=== PATIENT | male | born 1975 | race Caucasian/White ===

== ENCOUNTER → 2020-01-22 15:01 | Outpatient (BNVA) | payer MEDICAID, SELFPAY | PROVIDERS: Family Provider Registered Nurse; PCP Registered Nurse; Visit Provider Registered Nurse | DX: N52.9 Male erectile dysfunction, unspecified (principal); Z91.09 Other allergy status, other than to drugs and biological substances | CPT/HCPCS: 80053; 85025 ==

== ENCOUNTER 2020-02-12 06:42 | Outpatient (CLI) | payer MEDICAID, SELFPAY ==
--- NOTE | 2020-02-12 07:15 | US_ITS ---
WS: [id number] ULTRASOUND ABDOMEN LIMITED CLINICAL INFORMATION: Inguinal hernia COMPARISON: None. FINDINGS: Ultrasound of the inguinal canals. Large fat-containing right inguinal hernia. This enlarge s with Valsalva. No herniated bowel. Left inguinal canal appears normal US/US abdomen limited [id number] IMPRESSION: Large fat-containing right inguinal hernia. No herniated bowel. Left inguinal c anal is normal.
== END 2020-02-12 06:43 | disposition home or self-care (01) ==
LOC: US 06:43
PROVIDERS: PCP Registered Nurse; Visit Provider Registered Nurse
DX: K40.90 Unilateral inguinal hernia, without obstruction or gangrene, not specified as recurrent (principal)
CPT/HCPCS: 76705

== ENCOUNTER → 2020-02-26 15:35 | Outpatient (BNVA) | payer MEDICAID, SELFPAY | PROVIDERS: PCP Registered Nurse; Visit Provider Surgery | DX: Z20.828 Contact with and (suspected) exposure to other viral communicable diseases (principal); K40.30 Unilateral inguinal hernia, with obstruction, without gangrene, not specified as recurrent | CPT/HCPCS: 87635 ==

== ENCOUNTER 2020-03-03 10:45 | Day surgery (SDC) | payer MEDICAID, SELFPAY ==
[2020-02-29 12:21] VITALS: BMI 22.4
[2020-03-03] VITALS (9 sets, daily range): BP systolic 146–171; BP diastolic 80–109; PULSE 62–83; RESP 16–20; TEMP 35.9–36.7; O2SAT 93–97
[2020-03-03] MEDS: sodium chloride 0.9% 1,000 ML 30 ML IV (11:18)
--- NOTE | 2020-03-03 11:25 | ANES.PREANE2 ---
Pre-Anesthetic Assessment Pre-Anesthetic Assessment: Height/Weight: Height 1.88 m Weight 79.379 kg Temp Pulse Resp BP Pulse Ox 98.1 F 72 18 160/109 97 03/03/20 11:06 03/03/20 11:06 03/03/20 11:06 03/03/20 11:06 03/03/20 11:06 Preop Diagnosis: right inguinal hernia Proposed Procedure: Operation Date: 03/03/20 13:45 Proposed Procedures p Laparoscopic possible open right Inguinal Hernia Repair w/Mesh [id number] k40.30(Right) - Rashad Ospina MD Familial anesthetic complications: none Was Beta Deidre taken within 24 hours: N/A Last intake: Intake Last Liquid Date 03/02/20 Last Liquid Time 22:00 Last Solid Date 03/02/20 Last Solid Time 19:30 Social: Social History: Tobacco and No alcohol Exam: Pre-Anes Outpt Exam: alert, oriented x 3, clear to auscultation bilaterally and regular rate & rhythm Airway: Cervical ROM: WNL MP: 2 Dentition: Other (plates) Pulmonary: Pulmonary: COPD CV/HEM: CV/HEM: HTN Anesthetic Plan: ASA status: 2 Anesthesia: General Risk of > 500 ml blood loss (7ml/kg in children): No Meds/Allergies Current Medications: Current Medications Generic Name Dose Route Start Last Admin Trade Name Freq PRN Reason Stop Dose Admin Sodium Chloride 1,000 mls @ 30 ml s/hr 03/03/20 11:00 03/03/20 11:18 Sodium Chloride 0.9% IV 03/04/20 10:59 30 mls/hr .Q24H BERTIN Administration PFSH Anesthesia PFSH: Medical History Environmental allergies Hearing loss Family History Mother Diabetes Father Diabetes Cancer Social History Smoking and tobacco status: current some day smoker Alcohol intake: never Marital status: Current gender identity: Male Data Anesthesia Cardiac Studies: No Data to Display
--- NOTE | 2020-03-03 11:38 | W.PM.OPSUD ---
Surgery/Procedure H&P Update DATE OF PROCEDURE: March 03, 2020 DATE H&P PERFORMED: 02/22/20 H&P UPDATE INFORMATION: I have reviewed H&P completed within last 30 days, I have examined patient prior to procedure and No changes to prior documentation PREOP DIAGNOSIS: right inguinal hernia PLANNED PROCEDURE: Operation Date: 03/03/20 13:45 Proposed Procedures p Laparoscopic possible open right Inguinal Hernia Repair w/Mesh [id number] k40.30(Right) - Rashad Ospina MD
[2020-03-03] MEDS: midazolam 1 mg/mL INJ 2 mL 2 MG IVP (11:50)
--- NOTE | 2020-03-03 14:26 | PM.OP ---
Operative Report Date of procedure: March 03, 2020 Pre-op Diagnosis: right inguinal hernia Post-op Findings: Incarcerated indirect inguinal hernia containing omentum Procedure Done: Laparoscopic total extraperitoneal repair of incarcerated indirect right inguinal hernia with Surgimax 3D mid 16 x 11 cm mesh Specimens removed/disposition: None Surgeon: Rashad Ospina Anesthesia: General Condition: stable Disposition: PACU Procedure: The patient was taken to the operating room. After IV antibiotic was administered, the abdomen was prepped and draped in a sterile manner. Using a 15 blade, a 1.0 cm transverse incision was made infraumbilically on the () side. Subcutaneous tissue was divided using electrocautery and the anterior rectus sheath divided using an 11 blade. The rectus muscle was retracted laterally and the extraperitoneal space identified. A 11 mm port was placed and 12 mm of pneumoperitoneum was created. A 10 mm 30? scope was introduced and the retrorectus space was opened using the camera up to the pubic symphysis and 5 mm ports were placed in the midline, one 2-fingerbreadths above the pubic symphysis and the other midway between these two ports under direct visualization. Blunt dissection was carried out to open up the tissue in the midline and to the pubic symphysis, which was identified. The dissection was then carried laterally where the iliopubic tract was identified. There was no femoral, obturator or direct hernia noted. The inferior epigastric artery was identified and dissection was carried posterior to it and laterally, the space was opened up to the level of the umbilicus superior to the anterior superior iliac spine. I then proceeded to dissect out the spermatic cord and the indirect incarcerated hernial sac was reduced. The indirect hernia was large and there was an opening in the peritoneum resulting in pneumoperitoneum which was decompressed using a varies needle placed in the right upper quadrant. 16 x 11cm Surgimax 3D Mid mesh was rolled and introduced through the 10 mm port and then rolled laterally and apposed well against the abdominal wall to cover the myopectineal orifice completely. 10 Cc of 0.5% Marcaine was infiltrated into the preperitoneal space. The extraperitoneal space was desufflated under direct visualization to ensure no slippage of hernial sac under the mesh. All ports were removed, the anterior rectus fascia at the infraumbilical port closed using figure of eight 0 Vicryl sutures, subcutaneous tissue approximated using 2-0 Vicryl sutures and skin at all three port sites were closed using running subcuticular 4-0 Monocryl sutures and Dermabond. 10 mL of 0.5% Marcaine was infiltrated at the port sites. The patient was stable throughout the procedure.
--- NOTE | 2020-03-03 15:10 | ANE.PACU2 ---
Inpatient post-anesthesia follow up: Airway intact: Yes Vital signs: Temperature 97.6 F Pulse Rate 69 Respiratory Rate 18 Blood Pressure 159/86 Pulse Oximetry 96 Oxygen Delivery Me thod Room Air Oxygen Flow Rate 8 Fraction of Inspir ed Oxygen Hydration adequate: Yes Nausea and vomiting: No Pain level: 2 Mental status: Baseline
[2020-03-03] MEDS: HYDROcodone-acetaminophen 5-325 mg Tablet 1 TAB PO (15:30)
== END 2020-03-03 15:47 | disposition home or self-care (01) ==
PROVIDERS: PCP Registered Nurse; Visit Provider Surgery
PROC: (CPT 49650; principal; 2020-03-03 12:45)
DX: K40.30 Unilateral inguinal hernia, with obstruction, without gangrene, not specified as recurrent (principal); J44.9 Chronic obstructive pulmonary disease, unspecified; I10 Essential (primary) hypertension; F17.210 Nicotine dependence, cigarettes, uncomplicated
CPT/HCPCS: 49650; 12345; 96365; C1715; J0131; J0690; J1100; J2250; J2405; J2704; J2710; J3010; J3490; J7030

== ENCOUNTER → 2021-05-05 12:59 | Outpatient (BNVA) | payer MEDICAID, SELFPAY | PROVIDERS: PCP Registered Nurse; Visit Provider Registered Nurse | DX: Z20.822 Contact with and (suspected) exposure to COVID-19 (principal) | CPT/HCPCS: 87635 ==

== ENCOUNTER → 2023-02-02 11:06 | Outpatient (BNVA) | payer MEDICAID, SELFPAY | PROVIDERS: PCP Registered Nurse; Visit Provider Registered Nurse | DX: I10 Essential (primary) hypertension (principal); N52.9 Male erectile dysfunction, unspecified; E78.5 Hyperlipidemia, unspecified; Z12.11 Encounter for screening for malignant neoplasm of colon; Z80.0 Family history of malignant neoplasm of digestive organs; F17.210 Nicotine dependence, cigarettes, uncomplicated; H91.90 Unspecified hearing loss, unspecified ear | CPT/HCPCS: 80053; 80061; 84402; 84403; 85025 ==

== ENCOUNTER → 2023-02-10 09:11 | Outpatient (BNVA) | payer MEDICAID, SELFPAY | PROVIDERS: PCP Registered Nurse; Referring Provider Registered Nurse; Visit Provider Surgery | DX: Z12.11 Encounter for screening for malignant neoplasm of colon (principal) | CPT/HCPCS: 99024; 99203 ==

== ENCOUNTER 2023-03-16 08:25 | Day surgery (SDC) | payer MEDICAID, SELFPAY ==
[2023-03-16 09:02] VITALS: BP 156/104; PULSE 60; RESP 18; TEMP 36.4; O2SAT 96; BMI 22.8
[2023-03-16] MEDS: sodium chloride 0.9% 1,000 ML 30 ML IV (09:13)
--- NOTE | 2023-03-16 10:26 | ANES.PREANE2 ---
Pre-Anesthetic Assessment Height/Weight: Height 1.88 m Weight 80.739 kg Temp Pulse Resp BP Pulse Ox O2 Del Method 97.5 F L 60 18 156/104 96 Room Air 03/16/23 09:02 03/16/23 09:02 03/16/23 09:02 03/16/23 09:02 03/16/23 09:02 03/16/23 09:02 Preop Diagnosis: Screening Operation Date: 03/16/23 10:15 Proposed Procedures p Colonoscopy G0121,Z12.11(Not Applicable) - True Lawlre DO Familial anesthetic complications: None Was Beta Deidre taken within 24 hours: N/A Was Clonidine taken within 24 hours: N/A Last intake: Intake Last Liquid Date 03/15/23 Last Liquid Time 22:00 Last Solid Date 03/15/23 Last Solid Time 20:00 Social Tobacco and No alcohol 0.5 pack(s) per day Exam alert, oriented x 3, clear to auscultation bilaterally and regular rate & rhythm Airway Submandibular: within normal limits Cervical ROM: within normal limits Mallampati: Class III Dentition: false Comments: Comments: Soldered in tongue ring History/ROS No significant history except as noted and No significant complaints Pulmonary Asthma, Chronic Obstructive Pulmonary Disease and Cough CV/HEM Hypertension None reported Hepatic None reported GI None reported Metabolic Hyperlipidemia Musc/skel Lower Back Pain Neuropsych Headache Anesthetic Plan ASA status: 2 Anesthesia: Anesthesia Evaluation, General and MAC Other: Hard of hearing Risk of > 500 ml blood loss (7ml/kg in children): No Medications/Allergies Home Medications Medication Instructions Recorded Confirmed Last Taken Type nicotine See Rx Instructions transdermal 02/02/23 03/14/23 03/14/23 Rx 21mg/24hr-14mg/24hr-7mg/24hr daily .COMPLEX #56 patches transderm patches,sequentl sildenafil 50 mg tablet 50 mg PO DAILY PRN sexual activity 02/02/23 03/14/23 2 Weeks Ago Rx #14 tabs ~02/28/23 lisinopril 10 mg tablet 10 mg PO DAILY 30 days #30 tabs 02/09/23 03/14/23 03/15/23 Rx Allergies Allergy/AdvReac Type Severity Reaction Status Date / Time No Known Allergies Allergy Verified 02/16/23 09:55 Current Medications Generic Name Dose Route Start Last Admin Trade Name Freq PRN Reason Stop Dose Admin Sodium Chloride 1,000 mls @ 30 mls/hr 03/16/23 08:45 03/16/23 09:13 Sodium Chloride 0.9% IV 03/17/23 08:44 30 mls/hr .Q24H BERTIN Administration PFSH Anesthesia Medical History Environmental allergies Hearing loss Surgical History Status post right inguinal hernia repair (03/03/20) Family History Mother Diabetes Father Diabetes Cancer colon Social History Smoking and tobacco/nicotine status: former use of tobacco/nicotine Alcohol intake: never Substance/Drug Use: never Marital status: Do you think of yourself as: Straight/Heterosexual Current gender identity: Male Data Anesthesia Cardiac Studies: No Data to Display
--- NOTE | 2023-03-16 11:31 | PM.HP ---
Providers/Chief Complaint Primary Care Provider: DENYS Montes Chief Complaint: Z12.11 History of Present Illness Reji Pinto is a 48 year old male Review of Systems General: Reports: 10 or more systems reviewed and unremarkable except in HPI and below Medications/Allergies Home Medications Medication Instructions Recorded Confirmed Last Taken Type nicotine See Rx Instructions transdermal 02/02/23 03/14/23 03/14/23 Rx 21mg/24hr-14mg/24hr-7mg/24hr daily .COMPLEX #56 patches transderm patches,sequentl sildenafil 50 mg tablet 50 mg PO DAILY PRN sexual activity 02/02/23 03/14/23 2 Weeks Ago Rx #14 tabs ~02/28/23 lisinopril 10 mg tablet 10 mg PO DAILY 30 days #30 tabs 02/09/23 03/14/23 03/15/23 Rx Allergies Allergy/AdvReac Type Severity Reaction Status Date / Time No Known Allergies Allergy Verified 02/16/23 09:55 PFSH Acute PFSH: Medical History Hearing loss Environmental allergies Surgical History Status post right inguinal hernia repair (03/03/20) Family History Mother Diabetes Father Diabetes Cancer colon Social History Smoking and tobacco/nicotine status: former use of tobacco/nicotine Alcohol intake: never Substance/Drug Use: never Marital status: Do you think of yourself as: Straight/Heterosexual Current gender identity: Male Vitals/I&O/Wt Last Vital Signs Temp 97.5 F L 03/16/23 09:02 Pulse 60 03/16/23 09:02 Resp 18 03/16/23 09:02 BP 156/104 03/16/23 09:02 Pulse Ox 96 03/16/23 09:02 O2 Del Method Room Air 03/16/23 09:02 Weight last 48 hrs Weight 178 lb Physical Exam Narrative: General : Patient is well developed , no acute distress, oriented x3 Head : Normal cephalic, a-traumatic. Ears : Pinnae and external canal are normal. Hearing is normal. Eyes : PERRLA, Sclera and injection are normal. No conjunctival discharge. Nose : Mucous membranes are without erythema. Throat : buccal mucosa is normal, gums are without significant recession or hypertrophy. Lungs : Equal chest rise bilaterally, no use of accessory muscles, trachea is midline. Cor : Rate and rhythm are normal. Abdomen : Soft, ND, NT, no g/r/m Extremities : No edema, no cyanosis or clubbing, dorsalis pedis pulses are present bilaterally, non-tender to palpation of calves. Upper extremities are normal bilaterally. Back : non-tender to palpation, no CVA tenderness. Neuro : CN II - XII intact, Upper and lower extremities have equal and full strength A&P Assessment and plan (1) Family history of colon cancer in father: (2) Colon cancer screening: Plan Colonoscopy Attestations Medical Necessity Statement*: Home Coding Level of Care Code Acute Code for Chg Fwd Diagnoses Family history of colon cancer in father Z80.0 Colon cancer screening Z12.11
[2023-03-16 12:12] VITALS: BP 116/66; PULSE 60; RESP 18; TEMP 36.5; O2SAT 95
[2023-03-16 12:21] VITALS: BP 117/80; PULSE 73; RESP 18; O2SAT 96
[2023-03-16 12:30] VITALS: BP 129/94; PULSE 60; RESP 18; O2SAT 93
--- NOTE | 2023-03-16 15:56 | ANE.PACU2 ---
Inpatient post-anesthesia follow up: Airway intact: Yes Vital signs: Temperature 97.7 F Pulse Rate 60 Respiratory Rate 18 Blood Pressure 129/94 Pulse Oximetry 93 Oxygen Delivery Me thod Room Air Oxygen Flow Rate Fraction of Inspir ed Oxygen Hydration adequate: Yes Nausea and vomiting: No Pain level: 2 Mental status: Baseline
== END 2023-03-16 12:45 | disposition home or self-care (01) ==
PROVIDERS: PCP Registered Nurse; Visit Provider Surgery
PROC: 0DJD8ZZ Inspection of Lower Intestinal Tract, Via Natural or Artificial Opening Endoscopic (ICD-10-PCS; CPT 45378; principal; 2023-03-16 10:15)
DX: Z12.11 Encounter for screening for malignant neoplasm of colon (principal); Z87.891 Personal history of nicotine dependence; Z80.0 Family history of malignant neoplasm of digestive organs; C18.7 Malignant neoplasm of sigmoid colon; K63.5 Polyp of colon; I10 Essential (primary) hypertension; E78.5 Hyperlipidemia, unspecified
CPT/HCPCS: 45381; 45385; 88305; J2704; J7030

== ENCOUNTER → 2023-04-19 09:34 | Outpatient (BNVA) | payer MEDICAID, SELFPAY | PROVIDERS: PCP Registered Nurse; Visit Provider Surgery | DX: Z09 Encounter for follow-up examination after completed treatment for conditions other than malignant neoplasm (principal); Z98.890 Other specified postprocedural states; Z86.010 Personal history of colon polyps | CPT/HCPCS: 99213 ==

== ENCOUNTER → 2023-08-01 10:25 | Outpatient (BNVA) | payer MEDICAID, SELFPAY | PROVIDERS: PCP Registered Nurse; Visit Provider Registered Nurse | DX: E29.1 Testicular hypofunction (principal) | CPT/HCPCS: 84403 ==

== ENCOUNTER 2023-08-02 10:06 | Outpatient (CLI) | payer MEDICAID, SELFPAY ==
--- NOTE | 2023-08-02 10:14 | XRR_ITS ---
PROCEDURE INFORMATION: Exam: XR Chest Exam date and time: 08/02/2023 10:52 AM Age: 48 years old Clinical indication: Pre-operative exam; Cardiovascular screening and respiratory screening exam; Additional info: Pre op xray TECHNIQUE: Imaging protocol: Radiologic exam of the chest. Views: 2 views. COMPARISON: No relevant prior studies available. FINDINGS: Lungs: Nearly 3 cm nodular opacity with spiculations projecting in the left lower lung could be malignancy. Alternatively, this could be scarring, atelectasis, and/or focal pneumonitis. Otherwise, unremarkable. Pleural spaces: Unremarkable. No pleural effusion. No pneumothorax. Heart/Mediastinum: Unremarkable. No cardiomegaly. Bones/joints: Mild scoliosis with mild and moderate multilevel spondylosis. Otherwise, unremarkable. XR/XR chest 2V* [id number] IMPRESSION: Nearly 3 cm nodular opacity with spiculated margins in the lower left lung. See above for differential possibilities which includes malignancy. This can be further characterized with CT if clinically warranted.
[2023-08-02 11:24] LABS: Carcinoembryonic Antigen 3.1 ng/mL (0.0-4.7)
== END 2023-08-02 10:07 | disposition home or self-care (01) ==
PROVIDERS: PCP Registered Nurse; Visit Provider Surgery
DX: C18.9 Malignant neoplasm of colon, unspecified (principal); Z13.6 Encounter for screening for cardiovascular disorders
CPT/HCPCS: 36415; 71046; 82378

== ENCOUNTER 2023-08-16 07:35 | Inpatient (IN) | payer MEDICAID, SELFPAY ==
[2023-08-16] VITALS (24 sets, daily range): BP systolic 128–178; BP diastolic 75–105; PULSE 71–97; RESP 16–28; TEMP 36.2–36.8; O2SAT 92–98; BMI 23.1
[2023-08-16] MEDS: sodium chloride 0.9% 1,000 ML 30 ML IV (06:28)
[2023-08-16 06:32] LABS: Basophils # 0.1 10^3/uL (0.0-0.1); Basophils % 0.9 %; Eosinophils # 0.1 10^3/uL (0.0-0.8); Eosinophils % 1.4 %; Hematocrit 46.3 % (37-53); Lymphocytes # 2.6 10^3/uL (0.8-4.8); Lymphocytes % 30.8 %; Mean Corpuscular HGB Conc 33.7 g/dL (30-55); Mean Corpuscular Hemoglobin 30.2 pg (27-33); Mean Corpuscular Volume 89.6 fl (82-101); Monocytes # 0.7 10^3/uL (0.2-0.9); Monocytes % 8.2 %; Neutrophils % 58.2 %; Nucleated Red Blood Cells % 0 %; Platelet Count 228 10^3/cmm (157-399); Red Blood Count 5.17 10^6/uL (3.85-5.65); Red Cell Distribution Width 12.7 % (12.1-15.1); White Blood Count 8.43 10^3/uL (3.29-11.43)
--- NOTE | 2023-08-16 06:47 | P.ANESASSM_ITS ---
Pre-Anesthetic Assessment Height/Weight: Height 1.88 m Weight 81.647 kg Temp Pulse Resp BP Pulse Ox O2 Del Method 97.2 F L 73 16 149/100 96 Room Air 08/16/23 06:11 08/16/23 06:11 08/16/23 06:11 08/16/23 06:11 08/16/23 06:11 08/16/23 06:11 Operation Date: 08/16/23 07:00 Proposed Procedures p Colon Resection Lower Anterior/LOW ANTERIOR RECTAL RESECTION(Not Applicable) - True Lawler DO s Sigmoid Colectomy/COLECTOMY AND ANASTOMOSIS(Not Applicable) - True Lawler DO Familial anesthetic complications: None Was Beta Deidre taken within 24 hours: N/A Was Clonidine taken within 24 hours: N/A Last intake: Intake Last Liquid Date 08/15/23 Last Liquid Time 23:30 Last Solid Date 08/15/23 Last Solid Time 08:00 Social Tobacco and No alcohol Exam alert, oriented x 3, clear to auscultation bilaterally and regular rate & rhythm Airway Mallampati: Class I Dentition: other (none) CV/HEM Hypertension Anesthetic Plan ASA status: 3 Anesthesia: General Risk of > 500 ml blood loss (7ml/kg in children): No Medications/Allergies Home Medications Medication Instructions Recorded Confirmed Last Taken Type sildenafil 50 mg tablet 50 mg PO DAILY PRN sexual activity 02/02/23 08/15/23 2 Weeks Ago Rx #14 tabs ~02/28/23 lisinopril 20 mg tablet 20 mg PO DAILY 90 days #90 tabs 08/10/23 08/15/23 08/15/23 Rx testosterone cypionate 100 mg/mL 100 mg SUBCUT DIRECTED 08/15/23 08/15/23 08/08/23 History intramuscular oil (Depo-Testosterone) Allergies Allergy/AdvReac Type Severity Reaction Status Date / Time No Known Allergies Allergy Verified 08/15/23 13:09 Current Medications Generic Name Dose Route Start Last Admin Trade Name Freq PRN Reason Stop Dose Admin Sodium Chloride 1,000 mls @ 30 mls/hr 08/16/23 06:00 08/16/23 06:28 Sodium Chloride 0.9% IV 08/17/23 05:59 30 mls/hr .Q24H BERTIN Administration PFSH Anesthesia Medical History Hearing loss Environmental allergies Surgical History Hx of colonoscopy with polypectomy 03/16 Dr. Lawler Status post right inguinal hernia repair (03/03/20) Family History Mother Diabetes Father Diabetes Cancer colon Social History Smoking and tobacco/nicotine status: former use of tobacco/nicotine Alcohol intake: never Substance/Drug Use: never Marital status: Do you think of yourself as: Straight/Heterosexual Current gender identity: Male Data Anesthesia 08/16/23 06:24 08/16/23 06:24 Short CBC 08/16/23 Range/Units 06:24 WBC 8.43 (3.29-11.43) 10^3/uL Hgb 15.60 (11.27-16.99) g/dL Hct 46.3 (37-53) % MCV 89.6 (82-101) fl Plt Count 228 (157-399) 10^3/cmm Neut % (Auto) 58.2 % Neut # (Auto) 4.90 (1.8-7.7) 10^3/uL Cardiac Studies: 2 No Data to Display
[2023-08-16 06:56] LABS: Anion Gap 13.8 (5-19); Blood Urea Nitrogen 6 mg/dL (6-20); Calcium 8.6 mg/dL (8.5-10.5); Carbon Dioxide 25 mmol/L (22-29); Chloride 103 mmol/L (98-107); Creatinine Clr Calc Pharmacy 148.0173; Glomerular Filtration Rate 119.9 mL/min (90-130); Glucose 103 mg/dL (65-115); Osmolality Calculated 284 mOsm/kg (285-295); Potassium 3.8 mmol/L (3.5-5.1); Sodium 138 mmol/L (136-145)
--- NOTE | 2023-08-16 06:59 | W.PM.OPSUD ---
Surgery/Procedure H&P Update DATE OF PROCEDURE: August 16, 2023 DATE H&P PERFORMED: 08/01/23 H&P UPDATE INFORMATION: I have reviewed H&P completed within last 30 days, I have examined patient prior to procedure and No changes to prior documentation PLANNED PROCEDURE: Operation Date: 08/16/23 07:00 Proposed Procedures p Colon Resection Lower Anterior/LOW ANTERIOR RECTAL RESECTION(Not Applicable) - DO simran Garcia Sigmoid Colectomy/COLECTOMY AND ANASTOMOSIS(Not Applicable) - True Lawler DO
--- NOTE | 2023-08-16 07:22 | CT_ITS ---
WS: [id number] CT ABDOMEN AND PELVIS WITH CONTRAST HISTORY: rectosigmoid cancer TECHNIQUE: Imaging performed of the abdomen and pelvis with IV contrast. Single phase imaging of the abdomen. Coronal and sagittal reformats are submitted. All CT scans at [facility] use at [address] one of these dose optimization techniques: automated exposure control; mA and/or kV adjustment per patient size (includes targeted exams where dose is matched to clinical indication); or iterative re construction. IV CONTRAST: Omnipaque 350; 100 mL IV. Oral contrast: Yes. DLP: 561.52 mGy.cm COMPARISON: No similar studies. Lower thorax: Lung bases are slightly hyperinflated. Subsegmental atelectasis at the LEFT lung base w ith a small LEFT pleural effusion. Heart is normal size. Small hiatal hernia. Liver/biliary system: Normal size liver. There is several low-attenuation masses within the liver. Th e largest posterior to the gallbladder measures 2.3 x 2.1 cm and is a cyst. The smaller 1's are reall y too small to characterize. Normal portal vein. Gallbladder: Normal. No gallstones or wall thickening. No pericholecystic fluid. Pancreas: Normal size pancreas and pancreatic duct. No adjacent inflammation. Spleen: Granulomata. Normal size. Adrenal glands: Normal. Right kidney: Normal. Left kidney: Normal. Aorta: Mild atherosclerosis with no aneurysm. Lymphadenopathy: There are a few small unremarkable appearing RIGHT upper peritoneal lymph nodes. Free fluid: None. GI tract: Nondistended stomach. No small bowel or colon obstruction. Normal appendix. Mild sigmoid di verticula. Mild wall thickening. No obstructing lesion identified. Abdominal wall: Intact. Pelvis: No free fluid or adenopathy within the pelvis. Bones: Mild narrowing of the hip joints. There are a few scattered sclerotic foci which may be bone i slands. Cannot completely exclude ostial blastic disease. Lucent centered sclerotic lesion measures 7 mm in the RIGHT ilium. CT/CT abdomen pelvis w con* [id number] IMPRESSION: 1. Small LEFT pleural effusion with LEFT basilar atelectasis. Consider follow- up to resolution to be sure there is no underlying mass. 2. Hepatic cyst. There are additional too small to characterize low-attenuatio n lesions within the liver. Differential includes small cysts versus early meta static disease. 3. No obstructing colonic lesion. 4. No adenopathy or ascites. 5. Sclerotic lesions in the pelvis and proximal femurs. Majority of these are probably bone islands. There is a single lucent centered sclerotic lesion in th e RIGHT ilium which could potentially be a metastatic site. Consider follow-up bone scan imaging.
[2023-08-16] MEDS: magnesium citrate Btl 296 mL PO (08:30)
[2023-08-16 08:39] LABS: Basophils # 0.1 10^3/uL (0.0-0.1); Basophils % 1.1 %; Eosinophils # 0.1 10^3/uL (0.0-0.8); Eosinophils % 1.6 %; Hematocrit 45.2 % (37-53); Lymphocytes # 2.4 10^3/uL (0.8-4.8); Lymphocytes % 28.2 %; Mean Corpuscular HGB Conc 33.2 g/dL (30-55); Mean Corpuscular Hemoglobin 29.8 pg (27-33); Mean Corpuscular Volume 89.7 fl (82-101); Mean Platelet Volume 9.5 fL (7.4-10.4); Monocytes # 0.6 10^3/uL (0.2-0.9); Monocytes % 7.7 %; Neutrophils # 5.09 10^3/uL (1.8-7.7); Nucleated Red Blood Cells % 0 %; Platelet Count 238 10^3/cmm (157-399); Red Blood Count 5.04 10^6/uL (3.85-5.65); Red Cell Distribution Width 12.8 % (12.1-15.1); White Blood Count 8.33 10^3/uL (3.29-11.43)
[2023-08-16 08:44] LABS: Alanine Aminotransferase 16 U/L (0-41); Albumin Level 3.8 g/dL (3.5-5.2); Alkaline Phosphatase 109 U/L (40-130); Aspartate Amino Transferase 14 U/L (0-40); Blood Urea Nitrogen 6 mg/dL (6-20); Calcium 8.8 mg/dL (8.5-10.5); Carbon Dioxide 26 mmol/L (22-29); Chloride 105 mmol/L (98-107); Creatinine Clr Calc Pharmacy 129.5151; Globulin 2.8 g/dL (1.3-4.6); Glomerular Filtration Rate 102.7 mL/min (90-130); Glucose 104 mg/dL (65-115); Osmolality Calculated 290 mOsm/kg (285-295); Sodium 141 mmol/L (136-145); Total Bilirubin 0.6 mg/dL (0.15-1.2); Total Protein 6.6 g/dL (6.6-8.7)
[2023-08-16] MEDS: iohexol 350 mg/mL 500 mL Btl (per mL) PO (09:22)
[2023-08-16] MEDS: iohexol 350 mg/mL 500 mL Btl (per mL) IV (09:22)
[2023-08-16 13:37] LABS: Magnesium 1.8 mg/dL (1.7-2.3)
[2023-08-16] MEDS: dextrose 5%-sod chloride 0.45% 1,000 ML 125 ML IV ×2 (14:07→22:11)
[2023-08-16] MEDS: pantoprazole 40 mg SDV IVP (14:08)
[2023-08-16] MEDS: piperacillin-tazobactam 3.375 GM in sodium chloride 0.9% (plus) 50 ML IV ×2 (14:16→22:10)
--- NOTE | 2023-08-16 16:11 | SUR.EXTENDED ---
[id number] Back from OR and pt did not have CT of abdomen prior to sx today,so plan is to admit to and possibly do surgery later today. Patient and son informed of this plan and to remain NPO and verbalized understanding
--- NOTE | 2023-08-16 19:56 | P.OP_ITS ---
Operative Report Date of procedure: August 16, 2023 Pre-op diagnosis: Rectosigmoid adenocarcinoma Post-op diagnosis: same Procedure done: Sigmoidoscopy Laparoscopic low anterior rectal resection Implants: None Specimens removed/disposition: Rectosigmoid Surgeon: True Lawler DO Anesthesia: General Estimated blood loss (mL): 20 Complications: None apparent Brief History: This is a very pleasant 48-year-old gentleman who underwent colonoscopy in March 2023. He was found to have a large rectosigmoid polyp. Pathology showed at least intramucosal adenocarcinoma extending to the cauterized base of the polypectomy. He was sent to colorectal surgery in [place]. They recommended, reportedly, repeat colonoscopy and resection. I did not see the patient until nearly 6 months later when he was in office with his . Patient told me that he never underwent the procedure in [place] because he did not want to be in [place] that long and did not have transportation for that. He and his refused to undergo the procedure outside of [place]. They profusely asked me to perform the procedure. I agreed. The risk and benefits of procedure, including but not limited to, bleeding, infection, scar, numbness, pain, anastomotic leak, need for further surgery, to surrounding structures, were explained to the patient and his . They are understanding of the risks and wished to proceed. Procedure: The patient was wheeled into the operating room placed on the OR table in the supine position. General endotracheal intubation was achieved by department anesthesia. A Guzman catheter was placed. Patient was then placed into the lithotomy position. The abdomen was inspected prepped and draped in usual sterile fashion. A rectal prep was performed as well. A timeout was performed. All present were in agreement. A sigmoidoscopy was then performed. The colonoscope was advanced into the anus and advanced all the way to the rectosigmoid junction. A tattoo was evident. There is evidence of a scar just proximal to the tattoo however no mass was seen. I advanced the scope through the sigmoid to the descending colon. No further masses were seen. Prep was excellent. I then withdrew the colonoscope. A 15 blade scalpel was then used to make a stab incision in the left upper quadrant. A Veress needle was inserted into the abdomen and insufflation was brought to 15 mmHg. A 5 mm trocar was then placed into the umbilicus. Under direct visualization, 2 more 5 mm trocars were placed into the right hemiabdomen. The left white line of Toldt was then taken down sharply and bluntly using the laparoscopic LigaSure. The left colon and sigmoid colon were fully mobilized. A mini laparotomy incision was then made suprapubically with a 10 blade scalpel. Dissection was carried down through the fascia with electrocautery. The peritoneum was opened. The rectum was then freed at the proximal portion from the bladder and surrounding tissues with finger fracturing. A contour stapler was then used to transect the proximal rectum approximately 5 cm distal to the tattoo site. Laparoscopic LigaSure was then used to ligate the mesentery to the proximal sigmoid. The proximal sigmoid was then ligated using the TA stapler with a 60 mm blue load. The proximal and then cut with a 10 blade scalpel. A pursestring suture was placed onto the distal end of the descending colon and the anvil of the 29 mm EEA stapler was placed into the distal descending colon. The colon was pursestringed around the anvil. A 3-0 Vicryl suture was then used to tighten the mucosa around the anvil. Electrocautery was used to free pericolonic fat from the anvil. The EEA stapler was then advanced through the anus into the rectum and guided up to the staple line. The stapler was then opened near the staple line and the anvil was attached. The stapler was tightened down and then fired. 2 intact anastomotic rings were identified after the stapler was removed. The abdomen was then filled with normal saline. The colonoscope was then used to check the anastomosis. The anastomosis was intact. The colon and rectum were filled with air and no air leak was identified. I then changed gloves and gown. The abdomen was inspected and no bleeding was seen. The mini laparotomy incision was closed with #1 PDS x 2 in a running fashion. Skin was closed with fady. Sterile bandages were applied. Patient tolerated procedure well.
[2023-08-16] MEDS: fentaNYL 50 mcg/mL INJ 2mL IVP (20:08)
--- NOTE | 2023-08-16 21:25 | ANE.PACU2 ---
Inpatient post-anesthesia follow up: Airway intact: Yes Vital signs: Temperature 98.5 F Pulse Rate 87 Respiratory Rate 18 Blood Pressure 131/76 Pulse Oximetry 98 Oxygen Delivery Me thod Room Air Oxygen Flow Rate 3 Fraction of Inspir ed Oxygen Hydration adequate: Yes Nausea and vomiting: No Pain level: 1 Mental status: Baseline
[2023-08-16 21:40] LABS: Glucose Point of Care 130 mg/dL (70-110)
--- NOTE | 2023-08-16 22:24 | PC.NURSE ---
Addendum entered by OMARI Jimenez 08/17/23 05:07: Pt refused his morning dose of heparin, stating he would take the dose starting later in the day. Pt wearing bilateral SCD's, educated on increased risk of blood clot. Original Note: Pt refused heparin, educated that it put him at increased risk of blood clot. Pt voiced that he would start it tomorrow. No further concerns at this time, pt call light within reach.
[2023-08-17] VITALS (11 sets, daily range): BP systolic 122–143; BP diastolic 73–82; PULSE 74–102; RESP 16–22; TEMP 36.7–37.1; O2SAT 93–98
[2023-08-17] MEDS: HYDROmorphone 1 mg/mL INJ 1 mL IVP ×3 (00:15→16:00)
[2023-08-17] MEDS: scopolamine 1.5 Patch 1 PATCH TRANSDERMA (00:15)
[2023-08-17] MEDS: dextrose 5%-sod chloride 0.45% 1,000 ML 125 ML IV ×3 (05:59→21:41)
[2023-08-17] MEDS: piperacillin-tazobactam 3.375 GM in sodium chloride 0.9% (plus) 50 ML IV ×3 (05:59→21:42)
[2023-08-17] MEDS: pantoprazole 40 mg SDV IVP (05:59)
--- NOTE | 2023-08-17 07:31 | P.PN_ITS ---
Subjective 2 Subjective: Patient seen and examined. He had a lot of anxiety last night about the Guzman catheter and wanted it removed. He kept feeling like he had to urinate. He was given Ativan as needed. Pain is controlled Vitals/I&O/Wt Last Vital Signs Temp 98.1 F 08/19/23 04:00 Pulse 78 08/19/23 04:00 Resp 18 08/19/23 04:00 BP 164/89 08/19/23 04:00 Pulse Ox 95 08/19/23 04:00 O2 Del Method Room Air 08/18/23 16:53 O2 Flow Rate 3 08/16/23 22:20 08/18/23 08/19/23 08/19/23 22:59 06:59 14:59 Intake Total 1206.667 / 2256.667 1120 / 3376.667 Output Total 2200 / 3550 800 / 4350 Balance -993.333 / -1293.333 320 / -973.333 Weight last 48 hrs Weight 179 lb 12.8 oz Weight 179 lb 14.4 oz Physical Exam 2 Narrative: General: No acute distress, awake alert and oriented x 3 Abdomen: Soft, appropriately tender, nondistended Dressings clean dry and intact Urinary Catheter Management: Guzman: Cath Placed During This Visit: yes Reason for Continuing Indwelling Catheter: Other Urinary Catheter Date of Insertion: 08/16/23 Urinary Catheter Time of Insertion: 16:48 Data 08/18/23 14:00 08/18/23 14:00 A&P Assessment and plan (1) Adenocarcinoma of rectum: Plan Postoperative day #1 status post laparoscopic ow anterior rectal resection Continue IV fluids A.m. labs Ambulate Going to keep the Guzman for at least another day due to the proximity of the anastomosis to the bladder Await return of bowel function Attestations 2 Medical Necessity Statement*: Patient requires at least 2 more nights in the hospital for return of bowel function and recovery after left low anterior rectal resection for adenocarcinoma Coding Level of Care Code Acute Code for Chg Fwd Diagnoses Adenocarcinoma of rectum C20
--- NOTE | 2023-08-17 09:01 | PC.CHAP ---
Pastoral Care Encounter/Spiritual Assessment Type of Contact [] Declined certification technician visit [] Patient/Family/Request visit [] Outpatient visit [] Follow-up visit [] Physician referral [] Code/Alert [x] Routine visit [] Staff referral [] Actively dying [] Patient sleeping [x] Family support [] [] Out of room [] Palliative care [] [] Receiving care in room [] Pre-surgical visit [] Trauma [] Long length of stay [] ICU visit [] Other: Relational/Emotional Strength [x] Patient feels connected with others/family/visitors/staff [] Distress [] Loneliness/isolation [] Abandonment Spirituality of Patient [x] Person of Elvira [] Attends Congregation of their Elvira [x] Believes in Prayer [] Reads Bible or Congregation materials [] There are Spiritual issues to be addressed 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 Interventions [x] Prayer [] Active listening [x] Non-anxious presence [x] Spiritual/emotional support [] Crisis/trauma care [] Spiritual counseling [] Bereavement support [] Provided bereavement packet [] Provided Bible/devotional materials [] Provided toy/stuffed animal, coloring book to patient or family member [] Provided Communion [] Anointing/[place] [] Salvation [x] Completed spiritual assessment [] Other: Impact on Illness or Injury [] Angry [] Fearful [] Anxious [] Often cries [] Exhaustion [] Unable to work [] Unable to attend episcopalian [] Unable to walk/stand [] Unable to read [] Unable to drive [] Unable to eat/drink [] Unable to sleep [] Unable to be with family [] Patient intubated [] Other: Summary Time spent with patient 5 min
[2023-08-17] MEDS: LORazepam 2 mg/mL INJ 10 mL MDV 0.5 MG IVP (13:45)
[2023-08-17] MEDS: heparin 5,000 unit/mL INJ 1 mL 5000 UNIT SUBCUT ×2 (13:45→20:42)
--- NOTE | 2023-08-17 18:38 | PC.NURSE ---
pass gas Patients came out of room and stated he passed some loud gas.
[2023-08-18 03:59] VITALS: BP 125/75; PULSE 76; RESP 19; TEMP 36.7; O2SAT 94
[2023-08-18] MEDS: piperacillin-tazobactam 3.375 GM in sodium chloride 0.9% (plus) 50 ML IV ×2 (05:11→13:18)
[2023-08-18] MEDS: heparin 5,000 unit/mL INJ 1 mL 5000 UNIT SUBCUT ×3 (05:11→20:38)
[2023-08-18] MEDS: dextrose 5%-sod chloride 0.45% 1,000 ML 125 ML IV ×3 (05:12→20:39)
[2023-08-18 07:08] VITALS: BP 125/77; PULSE 78; RESP 16; TEMP 36.8; O2SAT 95
--- NOTE | 2023-08-18 07:35 | P.PN_ITS ---
Subjective 2 Subjective: Patient had a bloody bowel movement last night. Pain is controlled Vitals/I&O/Wt Last Vital Signs Temp 98.1 F 08/19/23 04:00 Pulse 78 08/19/23 04:00 Resp 18 08/19/23 04:00 BP 164/89 08/19/23 04:00 Pulse Ox 95 08/19/23 04:00 O2 Del Method Room Air 08/18/23 16:53 O2 Flow Rate 3 08/16/23 22:20 08/18/23 08/19/23 08/19/23 22:59 06:59 14:59 Intake Total 1206.667 / 2256.667 1120 / 3376.667 Output Total 2200 / 3550 800 / 4350 Balance -993.333 / -1293.333 320 / -973.333 Weight last 48 hrs Weight 179 lb 12.8 oz Weight 179 lb 14.4 oz Physical Exam 2 Narrative: General: No acute distress, awake alert and oriented x 3 Abdomen: Soft, appropriately tender, nondistended Incisions clean dry and intact, there is some blistering on the edges of his abdomen from the bandage tape Urinary Catheter Management: Guzman: Cath Placed During This Visit: yes Reason for Continuing Indwelling Catheter: Other Urinary Catheter Date of Insertion: 08/16/23 Urinary Catheter Time of Insertion: 16:48 Data 08/18/23 14:00 08/18/23 14:00 A&P Assessment and plan (1) Adenocarcinoma of rectum: Plan Postoperative day #2 status post laparoscopic low anterior rectal resection Continue IV fluids A.m. labs Ambulate DC Guzman Full liquid diet Attestations 2 Medical Necessity Statement*: Patient requires at least 1 more night in the hospital for return of bowel function and recovery after laparoscopic low anterior rectal resection for adenocarcinoma Coding Level of Care Code Acute Code for Chg Fwd Diagnoses Adenocarcinoma of rectum C20
[2023-08-18] MEDS: pantoprazole 40 mg SDV IVP (08:30)
[2023-08-18 11:24] VITALS: BP 144/75; PULSE 82; RESP 16; TEMP 36.7; O2SAT 95
[2023-08-18 14:17] LABS: Basophils % 0.3 %; Eosinophils % 0.1 %; Hematocrit 39.7 % (37-53); Lymphocytes # 2.9 10^3/uL (0.8-4.8); Lymphocytes % 24.3 %; Mean Corpuscular HGB Conc 33.2 g/dL (30-55); Mean Corpuscular Volume 90.2 fl (82-101); Mean Platelet Volume 9.9 fL (7.4-10.4); Monocytes % 7.9 %; Neutrophils # 8.06 10^3/uL (1.8-7.7); Nucleated Red Blood Cells % 0 %; Platelet Count 237 10^3/cmm (157-399); Red Cell Distribution Width 12.7 % (12.1-15.1); White Blood Count 12.04 10^3/uL (3.29-11.43)
[2023-08-18 14:34] LABS: Anion Gap 13.7 (5-19); Blood Urea Nitrogen 5 mg/dL (6-20); Calcium 8.1 mg/dL (8.5-10.5); Carbon Dioxide 25 mmol/L (22-29); Chloride 106 mmol/L (98-107); Creatinine Clr Calc Pharmacy 147.9841; Glomerular Filtration Rate 119.9 mL/min (90-130); Glucose 105 mg/dL (65-115); Magnesium 2.1 mg/dL (1.7-2.3); Osmolality Calculated 290 mOsm/kg (285-295); Potassium 3.7 mmol/L (3.5-5.1); Sodium 141 mmol/L (136-145)
[2023-08-18 16:53] VITALS: BP 124/74; PULSE 71; RESP 18; TEMP 36.5; O2SAT 93
[2023-08-18 19:54] VITALS: BP 144/88; PULSE 76; RESP 18; TEMP 36.9; O2SAT 96
[2023-08-19] VITALS: BP 156/88; PULSE 76; RESP 20; TEMP 36.6; O2SAT 95
[2023-08-19 04:00] VITALS: BP 164/89; PULSE 78; RESP 18; TEMP 36.7; O2SAT 95
[2023-08-19] MEDS: dextrose 5%-sod chloride 0.45% 1,000 ML 125 ML IV (04:56)
[2023-08-19] MEDS: heparin 5,000 unit/mL INJ 1 mL 5000 UNIT SUBCUT (04:56)
[2023-08-19] MEDS: pantoprazole 40 mg SDV IVP (06:31)
[2023-08-19 08:00] VITALS: BP 160/87; PULSE 67; RESP 16; TEMP 36.9; O2SAT 97
--- NOTE | 2023-08-19 10:04 | PM.PN ---
Subjective Subjective: 48-year-old male with a history of adenocarcinoma of the upper rectum colon who is postoperative day 4 status post laparoscopic low anterior resection. Patient is doing well, he has been tolerating full liquid diet, having bowel movements, no significant abdominal pain or other complaints. Vitals/I&O/Wt Last Vital Signs Temp 98.4 F 08/19/23 08:00 Pulse 67 08/19/23 08:00 Resp 16 08/19/23 08:00 BP 160/87 08/19/23 08:00 Pulse Ox 97 08/19/23 08:00 O2 Del Method Room Air 08/19/23 08:00 O2 Flow Rate 3 08/16/23 22:20 08/18/23 08/19/23 08/19/23 22:59 06:59 14:59 Intake Total 1206.667 / 2256.667 1120 / 3376.667 120 / 120 Output Total 2200 / 3550 800 / 4350 Balance -993.333 / -1293.333 320 / -973.333 120 / 120 Weight last 48 hrs Weight 179 lb 12.8 oz Weight 179 lb 14.4 oz Physical Exam GI: OTHER: Abdominal exam is benign, abdomen is soft, appropriately tender to palpation, surgical incisions are healing well. There is 2 areas of that noted the skin at the level of the anterior superior iliac spine bilaterally, patient denies any significant pain at this level and this wounds appears to be healing well Urinary Catheter Management: Guzman: Cath Placed During This Visit: yes, but has since been removed by the nurse Reason for Continuing Indwelling Catheter: Decision to DC Catheter Urinary Catheter Date of Insertion: 08/16/23 Urinary Catheter Time of Insertion: 16:48 Date Urinary Catheter Removed: 08/19/23 Time Urinary Catheter Discontinued: 09:15 Data 08/18/23 14:00 08/18/23 14:00 A&P Assessment and plan (1) Hx of colonoscopy with polypectomy: (2) Colon cancer: Plan Patient showing good progression after laparoscopic low anterior resection for upper rectum colon cancer. Patient is eager to go home, I have explained that there is further steps that we need to do before he is able to go home. First we need to remove his Guzman catheter and make sure that he is able to void after surgery. He agrees with this and is very happy with that decision. In addition his last white count on yesterday was 12 which is a 4 point increased from the baseline of 8 in the preop setting, this expected after surgery but I would like to trend his white count today and if it is stable or is going down I will think about the possibility of discharge either later today or tomorrow morning after advancing his diet to GI soft. -Continue full liquid diet -Continue IV antibiotics -Pain control -Ambulate as tolerated -DC Guzman catheter -Will follow-up morning labs Of note, I will be taking care of this patient today and over the weekend as my colleague Dr. Lawler is out of town. Attestations Medical Necessity Statement*: Patient will require 24 to 4 years of hospital stay for postoperative management after low anterior resection. Coding Level of Care Code Acute Code for [facility] Fwd Diagnoses Hx of colonoscopy with polypectomy Z98.890; Z86.010 Colon cancer C18.9
[2023-08-19 11:22] VITALS: BP 127/71; PULSE 54; RESP 16; TEMP 36.9; O2SAT 98
[2023-08-19 11:27] LABS: Basophils # 0.1 10^3/uL (0.0-0.1); Basophils % 0.6 %; Eosinophils # 0.2 10^3/uL (0.0-0.8); Eosinophils % 1.6 %; Hematocrit 43.3 % (37-53); Lymphocytes # 2.2 10^3/uL (0.8-4.8); Lymphocytes % 23.2 %; Mean Corpuscular Volume 90.8 fl (82-101); Mean Platelet Volume 9.7 fL (7.4-10.4); Monocytes # 0.8 10^3/uL (0.2-0.9); Monocytes % 8.8 %; Neutrophils # 6.05 10^3/uL (1.8-7.7); Neutrophils % 65.4 %; Nucleated Red Blood Cells % 0 %; Platelet Count 237 10^3/cmm (157-399); Red Blood Count 4.77 10^6/uL (3.85-5.65); Red Cell Distribution Width 12.4 % (12.1-15.1); White Blood Count 9.27 10^3/uL (3.29-11.43)
[2023-08-19 11:42] LABS: Anion Gap 12.9 (5-19); Blood Urea Nitrogen 4 mg/dL (6-20); Calcium 8.9 mg/dL (8.5-10.5); Carbon Dioxide 27 mmol/L (22-29); Chloride 104 mmol/L (98-107); Creatinine Clr Calc Pharmacy 147.9516; Glomerular Filtration Rate 119.9 mL/min (90-130); Glucose 110 mg/dL (65-115); Osmolality Calculated 288 mOsm/kg (285-295); Potassium 3.9 mmol/L (3.5-5.1); Sodium 140 mmol/L (136-145)
--- NOTE | 2023-08-19 13:25 | PM.MISC ---
Miscellaneous Note Purpose of Documentation: Update on patient care Note: Patient doing very well. Guzman was removed and patient is able to void. no significant abdominal pain. tolerated GI soft diet. has been ambulating and is requesting to go home. his WBC is normal this morning. Will proceed with discharge f/u in [address] Lawler
--- NOTE | 2023-08-19 14:18 | PC.NURSE ---
Discharge Note Patient discharged to home via private vehicle accompanied by self. 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 Mobile pharmacy medications and/or prescriptions provided. Belongings/home medications returned.
[2023-08-19 14:19] VITALS: BP 127/71; PULSE 54; RESP 16; TEMP 36.9; O2SAT 98
--- NOTE | 2023-08-19 15:00 | P.DS_ITS ---
Discharge Providers Date of Admission: 08/16/23 07:35 Date of Discharge: August 19, 2023 Attending Provider at Admission: True Lawler DO Attending Provider at Discharge: True Lawler DO Primary Care Provider: DENYS Montes Diagnoses at Discharge Discharge Diagnosis (1) Hx of colonoscopy with polypectomy: Status: Inactive Permanent problem details: 03/16 Dr. Lawler (2) Colon cancer: Status: Inactive Reason for Visit Reason for Visit: C18.9 Hospital Course Hospital Course 48-year-old male with history of upper rectum colon cancer who underwent low anterior resection with primary anastomosis by my colleague Dr. Lawler. Patient has had a good postoperative progression, white count is normal, patient is tolerating diet having bowel movements ambulating and today after Guzman was removed he has been able to void without difficulty. Patient has met all milestones for discharge. He will be sent home with appointment with Dr. Lawler early next week. Physical Exam GI: OTHER: And is soft, appropriately tender to palpation, surgical incisions are healing well. Urinary Catheter Management: Guzman: Cath Placed During This Visit: yes, but has since been removed by the nurse Reason for Continuing Indwelling Catheter: Decision to DC Catheter Urinary Catheter Date of Insertion: 08/16/23 Urinary Catheter Time of Insertion: 16:48 Date Urinary Catheter Removed: 08/19/23 Time Urinary Catheter Discontinued: 09:15 Discharge Data Studies Completed and Pending Completed Studies During Hospitalization Category Date Time Status CT abdomen pelvis w con* [id number] Stat Cat Scan 08/16/23 07:22 Completed Pending at discharge Category Date Time Status Pathology: Surgical [PTH] Routine Pth 08/16/23 20:34 Received Radiology Impressions Abdomen/Pelvis CT 08/16/23 07:22 IMPRESSION: 1. Small LEFT pleural effusion with LEFT basilar atelectasis. Consider follow- up to resolution to be sure there is no underlying mass. 2. Hepatic cyst. There are additional too small to characterize low-attenuation lesions within the liver. Differential includes small cysts versus early metastatic disease. 3. No obstructing colonic lesion. 4. No adenopathy or ascites. 5. Sclerotic lesions in the pelvis and proximal femurs. Majority of these are probably bone islands. There is a single lucent centered sclerotic lesion in the RIGHT ilium which could potentially be a metastatic site. Consider follow-up bone scan imaging. Laboratory Results WBC 9.27 10^3/uL (3.29-11.43) 08/19/23 11:14 Corrected WBC Cancelled 08/19/23 09:31 RBC 4.77 10^6/uL (3.85-5.65) 08/19/23 11:14 Hgb 14.30 g/dL (11.27-16.99) 08/19/23 11:14 Hct 43.3 % (37-53) 08/19/23 11:14 MCV 90.8 fl (82-101) 08/19/23 11:14 MCH 30.0 pg (27-33) 08/19/23 11:14 MCHC 33.0 g/dL (30-55) 08/19/23 11:14 RDW 12.4 % (12.1-15.1) 08/19/23 11:14 Plt Count 237 10^3/cmm (157-399) 08/19/23 11:14 MPV 9.7 fL (7.4-10.4) 08/19/23 11:14 Gran % Cancelled 08/19/23 09:31 Neut % (Auto) 65.4 % 08/19/23 11:14 Lymph % (Auto) 23.2 % 08/19/23 11:14 [place] % (Auto) 8.8 % 08/19/23 11:14 Eos % (Auto) 1.6 % 08/19/23 11:14 Baso % (Auto) 0.6 % 08/19/23 11:14 Neut # (Auto) 6.05 10^3/uL (1.8-7.7) 08/19/23 11:14 Lymph # (Auto) 2.2 10^3/uL (0.8-4.8) 08/19/23 11:14 [place] # (Auto) 0.8 10^3/uL (0.2-0.9) 08/19/23 11:14 Eos # (Auto) 0.2 10^3/uL (0.0-0.8) 08/19/23 11:14 Baso # (Auto) 0.1 10^3/uL (0.0-0.1) 08/19/23 11:14 Absolute Gran (auto) Cancelled 08/19/23 09:31 Nucleated RBC % (auto) 0 % 08/19/23 11:14 Nucleated RBCs # 0.0 /100WBC 08/19/23 11:14 Sodium 140 mmol/L (136-145) 08/19/23 11:14 Potassium 3.9 mmol/L (3.5-5.1) 08/19/23 11:14 Chloride 104 mmol/L (98-107) 08/19/23 11:14 Carbon Dioxide 27 mmol/L (22-29) 08/19/23 11:14 Anion Gap 12.9 (5-19) 08/19/23 11:14 BUN 4 mg/dL (6-20) L 08/19/23 11:14 Creatinine 0.7 mg/dL (0.7-1.2) 08/19/23 11:14 GFR Calculation 119.9 mL/min (90-130) 08/19/23 11:14 Glucose 110 mg/dL (65-115) 08/19/23 11:14 POC Glucose 130 mg/dL (70-110) H 08/16/23 21:37 Calculated Osmolality 288 mOsm/kg (285-295) 08/19/23 11:14 Calcium 8.9 mg/dL (8.5-10.5) 08/19/23 11:14 Magnesium 2.0 mg/dL (1.7-2.3) 08/19/23 11:14 Total Bilirubin 0.6 mg/dL (0.15-1.2) 08/16/23 08:17 AST 14 U/L (0-40) 08/16/23 08:17 ALT 16 U/L (0-41) 08/16/23 08:17 Alkaline Phosphatase 109 U/L (40-130) 08/16/23 08:17 Total Protein 6.6 g/dL (6.6-8.7) 08/16/23 08:17 Albumin 3.8 g/dL (3.5-5.2) 08/16/23 08:17 Globulin 2.8 g/dL (1.3-4.6) 08/16/23 08:17 Vitals Last Vital Signs Temp 98.4 F 08/19/23 14:19 Pulse 54 L 08/19/23 14:19 Resp 16 08/19/23 14:19 BP 127/71 08/19/23 14:19 Pulse Ox 98 08/19/23 14:19 O2 Del Method Room Air 08/19/23 11:22 O2 Flow Rate 3 08/16/23 22:20 Discharge Plan Discharge Patient Disposition: Home Condition: Stable Prescriptions: New meloxicam 7.5 mg tablet 7.5 mg PO DAILY 7 Days Qty: 7 0RF amoxicillin-pot clavulanate 875-125 mg tablet 1 tab PO BID Qty: 7 0RF oxycodone 5 mg tablet 5 mg PO Q8H PRN (Reason: pain) Qty: 20 0RF docusate sodium 100 mg capsule 100 mg PO BID Qty: 30 0RF Continued sildenafil 50 mg tablet 50 mg PO DAILY PRN (Reason: sexual activity) Qty: 14 0RF Rx Instructions: administer 30 minutes to 4 hours before activity lisinopril 20 mg tablet 20 mg PO DAILY 90 Days Qty: 90 0RF Depo-Testosterone 100 mg/mL oil 100 mg SUBCUT DIRECTED Rx Instructions: weekly No Action hydrocodone-acetaminophen 10-325 mg tablet 1 tab PO Q6H PRN (Reason: pain) 5 Days Qty: 20 0RF Discharge Orders: Discharge Order (Routine); Ordered 08/19/23 Ordered By: Jose Manning Referrals: True Lawler DO [Physician] - (2 weeks We have notified your physician's clinic of the need for a follow-up appointment to be scheduled. If you have not heard from them within the next 2 business days, please call them directly. ) Garima Dietz FNP [Primary Care Provider] - 08/25/23 1:20 pm Discharge Diet: GI Soft Discharge Activity: Limit activity as instructed Patient Instructions: Amoxicillin/Clavulanate Potassium (By mouth), Laxative, Stool Softeners (By mouth), Meloxicam (By mouth), Oxycodone, Slow Release (By mouth), Laparoscopic Bowel Resection (DC), Opioid Safety Activity Restrictions/Additional Instructions: no heavy lifting for the next 6 weeks. you can shower starting tomorrow, let soap and water run over your wounds and pat dry. return to the clinic or ER if you have fever, chills, purulence from wounds or severe abdominal pain Discharge Attestations Time Spent in Discharge Care*: less than 30 min Quality Metrics Clinical Quality Measures [ No reported AMI, CVA or VTE this stay] Coding Level of Care Code Acute Code for Chg Fwd Diagnoses Hx of colonoscopy with polypectomy Z98.890; Z86.010 Colon cancer C18.9
== END 2023-08-19 14:20 | disposition home or self-care (01) | DRG 331 ==
LOC: MEDSURG 07:35
PROVIDERS: Admitting Provider Surgery; PCP Registered Nurse; Visit Provider Surgery
PROC: 0DTN0ZZ Resection of Sigmoid Colon, Open Approach (ICD-10-PCS; principal; 2023-08-16 07:00)
PROC: 0DJD8ZZ Inspection of Lower Intestinal Tract, Via Natural or Artificial Opening Endoscopic (ICD-10-PCS; CPT 45378; 2023-08-16 16:00)
DX: C18.7 Malignant neoplasm of sigmoid colon (principal); Z87.891 Personal history of nicotine dependence; Z80.0 Family history of malignant neoplasm of digestive organs
CPT/HCPCS: 36415; 36416; 51702; 74177; 80048; 80053; 82962; 83735; 85025; 88309; 96372; C9113; J1100; J1170; J1644; J2060; J2250; J2371; J2405; J2543; J2704; J2710; J3010; J3490; J7030; J7799; Q9967

== ENCOUNTER → 2023-08-22 10:02 | Outpatient (BNVA) | payer MEDICAID, SELFPAY | PROVIDERS: PCP Registered Nurse; Visit Provider Surgery | DX: C20 Malignant neoplasm of rectum (principal); Z90.49 Acquired absence of other specified parts of digestive tract; L92.9 Granulomatous disorder of the skin and subcutaneous tissue, unspecified; Z98.890 Other specified postprocedural states | CPT/HCPCS: 99024 ==

== ENCOUNTER → 2023-08-26 10:22 | Outpatient (BNVA) | payer MEDICAID, SELFPAY | PROVIDERS: PCP Registered Nurse; Visit Provider Surgery | DX: Z90.49 Acquired absence of other specified parts of digestive tract; Z98.890 Other specified postprocedural states | CPT/HCPCS: 99024 ==

== ENCOUNTER → 2023-08-29 14:07 | Outpatient (BNVA) | payer MEDICAID, SELFPAY | PROVIDERS: PCP Registered Nurse; Visit Provider Surgery | DX: Z90.49 Acquired absence of other specified parts of digestive tract; Z98.890 Other specified postprocedural states | CPT/HCPCS: 99024 ==

== ENCOUNTER → 2023-09-09 11:42 | Outpatient (BNVA) | payer MEDICAID, SELFPAY | PROVIDERS: PCP Registered Nurse; Visit Provider Surgery | DX: Z90.49 Acquired absence of other specified parts of digestive tract; Z98.890 Other specified postprocedural states | CPT/HCPCS: 99024 ==

== ENCOUNTER 2024-02-17 14:13 | Outpatient (CLI) | payer MEDICAID, SELFPAY ==
--- NOTE | 2024-02-17 14:30 | CT_ITS ---
WS: [id number] CT ABDOMEN WITH CONTRAST HISTORY: K43.2 - Incisional hernia without obstruction or gangrene Contiguous single phase 5 mm axial imaging performed to the abdomen. Oral contrast has been provided. Coronal and sagittal reformats are submitted. All CT scans at [facility] use at least one of these dose optimization techniques: automated exposure control; mA and/or kV adjustment per patient size (includes targeted exams where dose is matched to clinical indication); or iterative reconstruct ion. IV CONTRAST: None Oral contrast: No DLP: 333.27 mGy.cm COMPARISON: 08/16/2023 Lower thorax: Continued consolidation at the LEFT lung base without improvement Small layering pleural effusion of slight increased density. The consolidation measures 2.0 x 1.4 cm. Heart is normal size. No hiatal hernia. Liver/biliary system: Mildly enlarged liver. Stable cyst in the RIGHT lobe. There are a few additiona l scattered low-attenuation masses which cannot be further characterized. No bile duct dilatation. Gallbladder: Mildly contracted. Pancreas: Normal size pancreas and pancreatic duct. No adjacent inflammation. Spleen: Granulomata. Adrenal glands: Normal. Right kidney: Normal. Left kidney: Normal. Aorta: Normal. Lymphadenopathy: No ascites or adenopathy. Free fluid: None. GI tract: Normal visualized in the abdomen. Abdominal wall: Infraumbilical abdominal wall hernia. Orifice is 10 mm. Herniated omental fat but no colon. Hernia is just to the RIGHT of the midline. Visualized osseous structures: Increase in lumbar lordosis. CT/CT abdomen wo con [id number] IMPRESSION: 1. Infraumbilical abdominal wall hernia contains fat only. 2. Hepatic cyst. 3. Reidentified is a consolidation at the LEFT lung base with adjacent pleural fluid. No change since 08/16/2023. This may be atelectasis.
== END 2024-02-17 14:14 | disposition home or self-care (01) ==
LOC: RAD 14:14
PROVIDERS: PCP Registered Nurse; Visit Provider Registered Nurse
DX: K43.9 Ventral hernia without obstruction or gangrene (principal); R91.8 Other nonspecific abnormal finding of lung field; Q44.6 Cystic disease of liver
CPT/HCPCS: 74150

== ENCOUNTER → 2024-02-20 10:58 | Outpatient (BNVA) | payer MEDICAID, SELFPAY | PROVIDERS: PCP Registered Nurse; Visit Provider Surgery | DX: K43.2 Incisional hernia without obstruction or gangrene (principal) | CPT/HCPCS: 99214 ==

== ENCOUNTER 2024-02-28 09:58 | Day surgery (SDC) | payer MEDICAID, SELFPAY ==
[2024-02-28] VITALS (7 sets, daily range): BP systolic 100–156; BP diastolic 65–104; PULSE 77–88; RESP 15–17; TEMP 36.6–37.3; O2SAT 94–96; BMI 23.1
[2024-02-28] MEDS: sodium chloride 0.9% 1,000 ML 30 ML IV (11:03)
--- NOTE | 2024-02-28 12:43 | W.PM.OPSUD ---
Surgery/Procedure H&P Update DATE OF PROCEDURE: February 28, 2024 DATE H&P PERFORMED: 02/20/24 H&P UPDATE INFORMATION: I have reviewed H&P completed within last 30 days, I have examined patient prior to procedure and No changes to prior documentation PLANNED PROCEDURE: Operation Date: 02/28/24 12:20 Proposed Procedures p lap incisional hernia repair with mesh- 74484,K43.2(Not Applicable) - True Lawler DO
--- NOTE | 2024-02-28 13:04 | ANES.PREANE2 ---
Pre-Anesthetic Assessment Height/Weight: Height 1.88 m Weight 81.647 kg Temp Pulse Resp BP Pulse Ox O2 Del Method 97.9 F 85 15 156/104 94 Room Air 02/28/24 10:53 02/28/24 10:53 02/28/24 10:53 02/28/24 10:53 02/28/24 10:53 02/28/24 10:53 Operation Date: 02/28/24 12:20 Proposed Procedures p lap incisional hernia repair with mesh- 51339,K43.2(Not Applicable) - True Lawler DO Familial anesthetic complications: none Was Beta Deidre taken within 24 hours: N/A Was Clonidine taken within 24 hours: N/A Last intake: Intake Last Liquid Date 02/27/24 Last Liquid Time 23:00 Last Solid Date 02/27/24 Last Solid Time 20:00 Social Tobacco, No alcohol and No tobacco Exam alert, oriented x 3, clear to auscultation bilaterally and regular rate & rhythm Airway Mallampati: Class I Dentition: false CV/HEM Hypertension Anesthetic Plan ASA status: 2 Anesthesia: General Risk of > 500 ml blood loss (7ml/kg in children): No Medications/Allergies Home Medications Medication Instructions Recorded Confirmed Last Taken Type lisinopril 20 mg tablet 20 mg PO DAILY 90 days #90 tabs 11/15/23 02/27/24 02/27/24 Rx Allergies Allergy/AdvReac Type Severity Reaction Status Date / Time No Known Allergies Allergy Verified 02/28/24 11:01 Current Medications Generic Name Dose Route Start Last Admin Trade Name Freq PRN Reason Stop Dose Admin Sodium Chloride 1,000 mls @ 30 mls/hr 02/28/24 10:45 02/28/24 11:03 Sodium Chloride 0.9% IV 02/29/24 10:44 30 mls/hr .Q24H BERTIN Administration PFSH Anesthesia Medical History Adenocarcinoma of rectum Colon cancer Hearing loss Environmental allergies Surgical History History of low anterior resection of rectum Laparoscopic low anterior rectal resection- Dr Lawler 08/16/23 Hx of colonoscopy with polypectomy 03/16 Dr. Lawler Status post right inguinal hernia repair (03/03/20) Family History Mother Diabetes Father Diabetes Cancer colon Social History Smoking and tobacco/nicotine status: current every day tobacco/nicotine user Alcohol intake: never Substance/Drug Use: never Marital status: Do you think of yourself as: Straight/Heterosexual Current gender identity: Male Data Anesthesia Cardiac Studies: No Data to Display
[2024-02-28] MEDS: ceFAZolin 2,000 mg SDV 2000 MG IVP (14:24)
[2024-02-28] MEDS: lidocaine-epi 2% PF 1:200,000 20 mL SDV 10 ML XX (14:51)
--- NOTE | 2024-02-28 15:09 | PM.OP ---
Operative Report Date of procedure: February 28, 2024 Pre-op diagnosis: Incisional hernia Post-op diagnosis: same Procedure done: Laparoscopic repair of incisional hernia with mesh Implants: 11 cm round Ventralight mesh Specimens removed/disposition: Hernia sac Surgeon: True Lawler DO Anesthesia: General and Local Estimated blood loss (mL): 5 Complications: None apparent Brief History: This is a very pleasant 49-year-old gentleman who presented my office with an incisional hernia. Laparoscopic repair with mesh was indicated. The risks and benefits were explained and documented. Procedure: Patient was wheeled into the operative room and placed on the OR table in a supine position. Abdomen was inspected prepped and draped in usual sterile fashion. Time-out was performed and all present were in agreement. A 15 blade scalp was used to make a 5 millimeter incision left upper quadrant. A Veress needle was placed into the incision and intra-abdominal insufflation was brought to 15 millimeters of mercury. A 12 millimeter trocar was placed into the left lower quadrant. The energy but device was then used to cut out the hernia sac. The hernia defect measured 1.5 cm in diameter. An 11 cm round Ventralight mesh was placed into the abdomen and brought up through the umbilicus using an the Reza-Mari. The mesh was then tacked in place in a double crown fashion. The skeleton of the mesh was removed via the left lower quadrant. The hernia sac was then removed from the abdomen via the left lower quadrant. The left lower quadrant port site was closed with an 0 Vicryl suture in a Reza-Mari in a [id number] fashion. Incisions were closed with 4 O Vicryl in a subcuticular interrupted fashion. Skin glue was applied. A dressing that included cotton balls and a Tegaderm was placed over the umbilicus. Patient tolerated the procedure well.
[2024-02-28] MEDS: HYDROcodone-acetaminophen 7.5-325 mg Tablet 1 TAB PO (16:14)
--- NOTE | 2024-02-28 17:09 | SUR.PHASEII ---
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 pt insisting on getting food from cafeteria,states that he is hungry,pt and walked to cafeteria,pt walking without any difficulty and no c/o pain.
--- NOTE | 2024-02-28 17:55 | ANE.PACU2 ---
Inpatient post-anesthesia follow up: Airway intact: Yes Vital signs: Temperature 98 F Pulse Rate 77 Respiratory Rate 15 Blood Pressure 135/78 Pulse Oximetry 95 Oxygen Delivery Me thod Room Air Oxygen Flow Rate 6 Fraction of Inspir ed Oxygen Hydration adequate: Yes Nausea and vomiting: No Pain level: 1 Mental status: Baseline
--- NOTE | 2024-02-28 17:57 | SUR.PHASEII ---
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
== END 2024-02-28 17:55 | disposition home or self-care (01) ==
PROVIDERS: PCP Registered Nurse; Visit Provider Surgery
PROC: 0WQF4ZZ Repair Abdominal Wall, Percutaneous Endoscopic Approach (ICD-10-PCS; CPT 49591; principal; 2024-02-28 12:10)
DX: K43.2 Incisional hernia without obstruction or gangrene (principal); I10 Essential (primary) hypertension; Z85.038 Personal history of other malignant neoplasm of large intestine; F17.200 Nicotine dependence, unspecified, uncomplicated
CPT/HCPCS: 49591; 51702; 88302; C1781; J0131; J0330; J0690; J1100; J1171; J1885; J2250; J2405; J2704; J3010; J3490; J7030

== ENCOUNTER → 2024-03-12 09:38 | Outpatient (BNVA) | payer MEDICAID, SELFPAY | PROVIDERS: PCP Registered Nurse; Visit Provider Surgery | DX: Z85.048 Personal history of other malignant neoplasm of rectum, rectosigmoid junction, and anus (principal); Z98.890 Other specified postprocedural states; Z87.19 Personal history of other diseases of the digestive system; Z80.0 Family history of malignant neoplasm of digestive organs; Z90.49 Acquired absence of other specified parts of digestive tract | CPT/HCPCS: 99214 ==

== ENCOUNTER → 2024-07-12 10:04 | Outpatient (BNVA) | payer MEDICAID, SELFPAY | PROVIDERS: PCP Registered Nurse; Visit Provider Student in an Organized Health Care Education/Training Program | DX: C18.9 Malignant neoplasm of colon, unspecified (principal); Z12.11 Encounter for screening for malignant neoplasm of colon | CPT/HCPCS: 99214 ==

== ENCOUNTER → 2024-08-29 12:08 | Outpatient (BNVA) | payer MEDICAID, SELFPAY | PROVIDERS: PCP Registered Nurse; Visit Provider Registered Nurse | DX: I10 Essential (primary) hypertension (principal) | CPT/HCPCS: 80053; 80061; 85025 ==

== ENCOUNTER 2024-10-09 11:54 | Day surgery (SDC) | payer MEDICAID, SELFPAY ==
--- NOTE | 2024-10-09 11:51 | ANES.PREANE2 ---
Pre-Anesthetic Assessment Height/Weight: Height 1.88 m Operation Date: 10/09/24 13:15 Proposed Procedures p Colonoscopy 88690 G0105, Z12.11(Not Applicable) - Christopher Montano MD Familial anesthetic complications: None Was Beta Deidre taken within 24 hours: N/A Was Clonidine taken within 24 hours: N/A Social Tobacco and No alcohol 2-3/day, using Chantix pack(s) per day Exam alert, oriented x 3, clear to auscultation bilaterally (Diminished) and regular rate & rhythm Airway Submandibular: within normal limits (Cannot remove tongue ring) Cervical ROM: within normal limits Mallampati: Class II Comments: Comments: Edentulous History/ROS No significant history except as noted and No significant complaints Pulmonary Asthma, Chronic Obstructive Pulmonary Disease and Cough Seasonal allergies CV/HEM Coronary Artery Disease and Hypertension None reported Hepatic None reported GI Gastroesophageal Reflux Disease (Depends on food intake) and Hiatal Hernia Colon cancer with resection Metabolic None reported Musc/skel Lower Back Pain and Osteoarthritis/DJD Neuropsych Anxiety, Depression and Neuropathy Anesthetic Plan ASA status: 3 Anesthesia: Anesthesia Evaluation, General and MAC Risk of > 500 ml blood loss (7ml/kg in children): No Medications/Allergies Home Medications ?Medication ?Instructions ?Recorded ?Confirmed ?Last Taken ?Type cetirizine 10 mg capsule (Zyrtec) 10 mg PO DAILY PRN allergy 10/01/24 10/04/24 10/08/24 Rx symptoms 30 days #30 caps varenicline tartrate 0.5 mg tablet 0.5 mg PO BID 30 days #60 tabs 10/01/24 10/04/24 10/08/24 Rx (Chantix) lisinopril 20 mg tablet 20 mg PO DAILY 10/04/24 10/04/24 10/08/24 History Allergies Allergy/AdvReac Type Severity Reaction Status Date / Time No Known Allergies Allergy Verified 10/09/24 12:13 [facility] Anesthesia Medical History Colorectal cancer Colon cancer Hearing loss Environmental allergies Surgical History Hx of hernia repair Laparoscopic repair of incisional hernia with mesh- Dr Lawler 02/28/24 History of low anterior resection of rectum Laparoscopic low anterior rectal resection- Dr Lawler 08/16/23 Hx of colonoscopy with polypectomy 03/16 Dr. Lawler Status post right inguinal hernia repair (03/03/20) Family History Mother Diabetes Father Diabetes Cancer colon Social History Smoking and tobacco/nicotine status: current every day tobacco/nicotine user Alcohol intake: never Substance/Drug Use: never Marital status: Do you think of yourself as: Straight/Heterosexual Current gender identity: Male
--- NOTE | 2024-10-09 12:10 | W.PM.OPSUD ---
Surgery/Procedure H&P Update DATE OF PROCEDURE: October 09, 2024 DATE H&P PERFORMED: 10/11/24 H&P UPDATE INFORMATION: I have reviewed H&P completed within last 30 days, I have examined patient prior to procedure and No changes to prior documentation PLANNED PROCEDURE: Operation Date: 10/09/24 13:15 Proposed Procedures p Colonoscopy [id number] G0105, Z12.11(Not Applicable) - Christopher Montano MD
--- NOTE | 2024-10-09 12:11 | P.HP_ITS ---
Same Day Surgery H&P Indication for Procedure/HPI DATE OF PROCEDURE: October 09, 2024 CHIEF COMPLAINT/INDICATIONFOR SURGICAL PROCEDURE: surveillance colonoscopy PREOP DIAGNOSIS: surveillance colonoscopy PLANNED PROCEDURE: Operation Date: 10/09/24 13:15 Proposed Procedures p Colonoscopy 89204 G0105, Z12.11(Not Applicable) - Christopher Montano MD Medications/Allergies* Home Medications ?Medication ?Instructions ?Recorded ?Confirmed ?Type lisinopril 20 mg tablet 20 mg PO DAILY 10/04/24 06/2 10/03 History Allergies/Adverse Reactions Allergy/AdvReac Type Severity Reaction Status Date / Time No Known Allergies Allergy Verified 10/04/24 08:32 Pertinent History/Comorbid Conditions* Medical History (Updated 07/12/24 @ 10:32 by Christopher Montano MD) Colorectal cancer Colon cancer Hearing loss Environmental allergies Surgical History (Updated 03/12/24 @ 11:25 by True Lawler DO) Hx of hernia repair Laparoscopic repair of incisional hernia with mesh- Dr Lawler 02/28/24 History of low anterior resection of rectum Laparoscopic low anterior rectal resection- Dr Lawler 08/16/23 Hx of colonoscopy with polypectomy 03/16 Dr. Lawler Status post right inguinal hernia repair (03/03/20) Family History (Updated 02/10/23 @ 10:12 by JEOVANNY Cabrera) Diabetes Mother Father Cancer Father colon Social History Smoking and tobacco/nicotine status: current every day tobacco/nicotine user Alcohol intake: never Substance/Drug Use: never Marital status: Do you think of yourself as: Straight/Heterosexual Current gender identity: Male Pertinent Exam Findings alert, oriented x 3, clear to auscultation bilaterally, regular rate & rhythm and procedure specific exam findings abdomen soft, nt, nd Recommendations Risks and benefits of procedure reviewed and Patient/family agree to proceed Surgery/Procedure today Coding Level of Care Code Acute Code for Chg Fwd
[2024-10-09 12:15] VITALS: BP 148/95; PULSE 91; RESP 18; TEMP 36.6; O2SAT 96
[2024-10-09 12:16] VITALS: BMI 23.7
[2024-10-09 12:52] VITALS: BP 97/66; PULSE 81; RESP 12; TEMP 36.1; O2SAT 95
--- NOTE | 2024-10-09 12:53 | PC.NURSE ---
CECUM TIME 1242
[2024-10-09 13:07] VITALS: BP 110/78; PULSE 87; RESP 18; O2SAT 94
== END 2024-10-09 13:17 | disposition home or self-care (01) ==
PROVIDERS: PCP Registered Nurse; Visit Provider Student in an Organized Health Care Education/Training Program
PROC: 0DJD8ZZ Inspection of Lower Intestinal Tract, Via Natural or Artificial Opening Endoscopic (ICD-10-PCS; CPT 45378; principal; 2024-10-09 13:15)
DX: Z12.11 Encounter for screening for malignant neoplasm of colon (principal); K62.1 Rectal polyp; D12.5 Benign neoplasm of sigmoid colon; I25.10 Atherosclerotic heart disease of native coronary artery without angina pectoris; F17.200 Nicotine dependence, unspecified, uncomplicated; J44.9 Chronic obstructive pulmonary disease, unspecified; I10 Essential (primary) hypertension; Z79.899 Other long term (current) drug therapy; Z85.038 Personal history of other malignant neoplasm of large intestine
CPT/HCPCS: 45380; 88305; J2704; J7030

== ENCOUNTER → 2024-10-25 08:11 | Outpatient (BNVA) | payer MEDICAID, SELFPAY | PROVIDERS: PCP Registered Nurse; Visit Provider Student in an Organized Health Care Education/Training Program | DX: Z09 Encounter for follow-up examination after completed treatment for conditions other than malignant neoplasm (principal) | CPT/HCPCS: 99204; 99213 ==

== ENCOUNTER → 2025-02-22 13:22 | Outpatient (BNVA) | payer MEDICAID, SELFPAY | PROVIDERS: PCP Registered Nurse; Visit Provider Registered Nurse | DX: R50.9 Fever, unspecified (principal) | CPT/HCPCS: 87426 ==